=== PATIENT | male | born 1950 | race Two or more races ===

== ENCOUNTER 2016-10-21 10:37 | Emergency (ER) | payer OTHER, BC ==
[2016-10-21 11:38] VITALS: BP 118/82; PULSE 106; TEMP 98.5; BMI 17.6
[2016-10-21] MEDS ORDERED: ALBUTEROL SO4 2.5/IPRATROPIUM 0.5 INH SOL 3 ML VIAL.NEB. NEB ONE ×2 (12:29→12:35)
--- NOTE | 2016-10-21 12:35 | PDOC ---
History of Present Illness - General Chief Complaint: Cold Symptoms Stated Complaint: SOB Time Seen by Provider: 10/21/16 12:15 History Source: Patient Exam Limitations: No Limitations - History of Present Illness Initial Comments: 10/21/16 12:30 66 yr male with history of COPD, HTN, high cholesterol c/o cough nasal congestion, body aches for 2 days. Pt states his great grandson was sick last week. Denies chest pain no swelling to the legs. 10/21/16 12:35 Severity: reports: mild Possible Cause: Yes: occasional episodes Past History - Past Medical History Allergies/Adverse Reactions: Allergies Allergy/AdvReac Type Severity Reaction Status Date / Time No Known Drug Allergies Allergy Verified 10/21/16 11:24 Home Medications: Ambulatory Orders Albuterol 0.083% Nebulizer Karime [Ventolin 0.083%] 1 neb NEB Q4H PRN 06/02/16 Alfuzosin HCl [Uroxatral] 10 mg PO DAILY 06/02/16 Amlodipine Besylate [Norvasc -] 5 mg PO DAILY 06/02/16 Aspirin [Aspirin EC] 81 mg PO DAILY 06/02/16 Atorvastatin Ca [Lipitor] 10 mg PO DAILY 06/02/16 Budesonide/Formeterol Fumarate [SYMBICORT 80/4.5mcg -] 2 inh NEB BID 06/02/16 Losartan-Hctz 50-12.5 mg Tab 1 tab PO DAILY 06/02/16 Montelukast Na [Singulair -] 10 mg PO DAILY 06/02/16 Omeprazole [Prilosec] 20 mg PO DAILY 06/02/16 Roflumilast [Daliresp] 500 mcg PO DAILY 06/02/16 Tiotropium [place] [Spiriva] 18 mcg NEB DAILY 06/02/16 Azithromycin [Zithromax 250mg Tablets -] 250 mg PO UTDICT #6 tab 10/21/16 Asthma: Yes HTN: Yes Liver Disease: Yes - Surgical History Abdominal Surgery: Yes (HERNIA) - Psycho/Social/Smoking Cessation Hx Suicidal Ideation: No Smoking History: Former smoker Have you smoked in the past 12 months: Yes Number of Cigarettes Smoked Daily: 20 Information on smoking cessation initiated: No 'Breaking Loose' booklet given: 06/02/16 Hx Alcohol Use: Yes Drug/Substance Use Hx: No Substance Use Type: Alcohol Hx Substance Use Treatment: No Respiratory Specific PMHX - Complaint Specific PMHX Bronchitis: Yes Review of Systems - Review of Systems Able to Perform ROS?: Yes Is the patient limited Welsh proficient: No Constitutional: Yes: Symptoms Reported, See HPI Respiratory: Yes: See HPI, Cough *Physical Exam - Vital Signs Last Vital Signs Temp Pulse Resp BP Pulse Ox 98.5 F 106 H 20 118/82 96 10/21/16 11:33 10/21/16 11:33 10/21/16 11:33 10/21/16 11:33 10/21/16 11:33 - Physical Exam General Appearance: Yes: Nourished, Appropriately Dressed, Cachetic (mildly tachypneic) HEENT: positive: EOMI, GURWINDER, Normal ENT Inspection, TMs Normal, Pharynx Normal, Nasal Congestion Neck: positive: Supple. negative: Tender Respiratory/Chest: positive: Lungs Clear, Decreased Breath Sounds. negative: Chest Tender, Respiratory Distress, Crackles, Rales, Rhonchi, Stridor, Wheezing Gastrointestinal/Abdominal: positive: Normal Bowel Sounds, Soft Musculoskeletal: positive: Normal Inspection Extremity: positive: Normal Capillary Refill, Normal Inspection, Normal Range of Motion Integumentary: positive: Normal Color, Dry, Warm Neurologic: positive: Fully Oriented, Alert, Normal Mood/Affect, Normal Response , Motor Strength 5/5 Heart Score/ECG Review - History History: Slightly suspicious - Electrocardiogram EKG: Normal - Age Age: 45-65 - Risk Factors Risk Factors Heart Score: Yes Hx Hypercholesterolemia, Yes Hx Hypertension, Yes Smoking History - Troponin Troponin: </= normal limit - ECG Impressions Normal ECG: Yes Non-specific ST Elevation: No Ischemic Changes: No ED Treatment Course - LABORATORY CBC & Chemistry Diagram: 10/21/16 13:30 10/21/16 13:30 - RADIOLOGY Radiology Studies Ordered: Category Date Time Status CHEST PA & LAT [RAD] Stat Radiology 10/21/16 12:28 Ordered Medical Decision Making - Medical Decision Making 10/21/16 12:45 cc: cough for 3 days with body aches, feels sob has COPD using inhalers and nebs at home with some relief no chest pain no measurable fever, around sick great grandson last week will check for FLU, CXR , duoneb 10/21/16 13:17 negative flu CXR negative will check EKG, labs 10/21/16 13:40 10/21/16 14:29 EKG done signed by Dr. Aguilar non specific t wave abnormality laterally, no st elevations, negative troponin 10/21/16 14:30 10/21/16 14:30 10/21/16 15:28 *DC/Admit/Observation/Transfer Diagnosis at time of Disposition: Acute bronchitis Qualifiers: Bronchitis organism: unspecified organism Qualified Code(s): J20.9 - Acute bronchitis, unspecified - Discharge Dispostion Disposition: HOME Condition at time of disposition: Good - Prescriptions Prescriptions: Azithromycin [Zithromax 250mg Tablets -] 250 mg PO UTDICT #6 tab - Referrals Referrals: David Pearson MD [Primary Care Provider] - - Patient Instructions Additional Instructions: follow with your doctor tomorrow or Wednesday for follow up take the medication as prescribed drink pleanty of water return if worse
[2016-10-21 13:35] LABS: BASOPHIL 0.6 % (0-2.0); EOSINOPHIL 0.1 % (0-4.5); MCH 29.4 pg (25.7-33.7); MEAN CELL VOLUME 89.2 fl (80-96); MEAN PLT VOLUME 7.3 fl (7.5-11.1); NEUTROPHILS 66.5 % (42.8-82.8); PLATELET COUNT 205 K/MM3 (134-434); RDW 14.6 % (11.9-15.9); WHITE BLOOD COUNT 5.2 K/mm3 (4.0-10.0)
[2016-10-21 14:04] LABS: ALBUMIN 3.3 g/dl (3.4-5.0); ANION GAP 10 (8-16); BILIRUBIN,TOTAL 0.3 mg/dL (0.2-1.0); CALCIUM 8.7 mg/dL (8.5-10.1); CO2 28 mmol/L (21-32); CREATININE 1.2 mg/dL (0.7-1.3); GLUCOSE,RANDOM 214 mg/dL (74-106); SGOT/AST 16 U/L (15-37); SGPT/ALT 23 U/L (12-78); TOT PROT 7.1 g/dl (6.4-8.2)
[2016-10-21 14:07] LABS: ALK PHOS 95 U/L (45-117); TROPONIN I < 0.02 ng/ml (0.00-0.05)
--- NOTE | 2016-10-21 23:00 | EKG ---
Test Reason : Blood Pressure : / mmHG Vent. Rate : 094 BPM Atrial Rate : 094 BPM P-R Int : 174 ms QRS Dur : 078 ms QT Int : 366 ms P-R-T Axes : 081 071 078 degrees QTc Int : 457 ms NORMAL SINUS RHYTHM NONSPECIFIC T WAVE ABNORMALITY ABNORMAL ECG NO PREVIOUS ECGS AVAILABLE Confirmed by SUNITHA MONSIVAIS, JUDITH ([id number]) on 10/21/2016 11:00:04 PM Referred By: DHIRAJ Confirmed By:JUDITH HELTON MD
== END 2016-10-21 15:34 | disposition home or self-care (01) ==
LOC: JERFT 10:37
PROC: 3E0F7GC Introduction of Other Therapeutic Substance into Respiratory Tract, Via Natural or Artificial Opening (ICD-10-PCS; principal; 2016-10-21)
DX: J20.9 Acute bronchitis, unspecified (principal); J44.9 Chronic obstructive pulmonary disease, unspecified; I10 Essential (primary) hypertension; E78.00 Pure hypercholesterolemia, unspecified; D64.9 Anemia, unspecified; Z87.891 Personal history of nicotine dependence; Z79.82 Long term (current) use of aspirin
CPT/HCPCS: 36415; 71020-TC; 80053; 82550; 84484; 85025; 85379; 87804; 93005; 93010; 94640; 99281-25

== ENCOUNTER 2017-09-07 13:45 | Emergency (ER) | payer BC, MEDICARE, OTHER ==
[2017-09-07 13:53] VITALS: TEMP 98.3; BMI 17.6
--- NOTE | 2017-09-07 15:48 | PDOC ---
History of Present Illness - General History Source: Patient Exam Limitations: No Limitations - History of Present Illness Initial Comments: 09/07/17 16:18 The patient is a 67 year old male with a significant PMH of COPD, HTN, liver disease, and HLD who presents to the emergency department complaining of wheezing, shortness of breath, non-productive cough, and unexplained weight loss. The patient's states the patient was experiencing difficulty breathing and used his nebulizer yesterday about 4-5 times with no improvement prompting their visit to the ER today.The patient's states the patient ate soup yesterday and that was his last meal. The patient's reports the patient has been eating and drinking normally but has lost a significant amount of weight. The patient denies chest pain, headache and dizziness. Denies fever , chills, nausea, vomit, diarrhea and constipation. Denies dysuria, frequency, urgency and hematuria. Allergies: NKA Past surgical history: Abdominal surgery for hernia Social history: Alcohol and cigarette (20 per day) use. No reported drug use. PCP:Dr. Maguire <Alena Zaidi - Last Filed: 09/07/17 16:18> <Liz Barbosa - Last Filed: 09/08/17 16:18> - General Chief Complaint: Shortness of Breath Stated Complaint: DIFFICULTY BREATHING Time Seen by Provider: 09/07/17 15:40 Past History <Alena Zaidi - Last Filed: 09/07/17 16:18> - Past Medical History Asthma: Yes COPD: Yes (emphysema) DVT: No HTN: Yes Hypercholesterolemia: Yes Liver Disease: Yes Other medical history: chronic back problems - Surgical History Abdominal Surgery: Yes (HERNIA) - Suicide/Smoking/Psychosocial Hx Smoking History: Current every day smoker Have you smoked in the past 12 months: Yes Number of Cigarettes Smoked Daily: 20 Information on smoking cessation initiated: Yes 'Breaking Loose' booklet given: 09/07/17 Hx Alcohol Use: No Drug/Substance Use Hx: No Substance Use Type: Alcohol Hx Substance Use Treatment: No <Liz Barbosa - Last Filed: 09/08/17 16:18> - Past Medical History Allergies/Adverse Reactions: Allergies Allergy/AdvReac Type Severity Reaction Status Date / Time No Known Drug Allergies Allergy Verified 09/07/17 13:49 Home Medications: Ambulatory Orders Albuterol 0.083% Nebulizer Karime [Ventolin 0.083%] 1 neb NEB Q4H PRN 09/07/17 Albuterol Sulfate [Proair Hfa] 1 - 2 puff IH Q4H PRN 09/07/17 Amlodipine Besylate [Norvasc -] 5 mg PO DAILY 09/07/17 Aspirin [ASA -] 81 mg PO DAILY 09/07/17 Atorvastatin Ca [Lipitor] 10 mg PO HS 09/07/17 Azithromycin [Zithromax 250mg Tablets -] 250 mg PO UTDICT #6 tab 09/07/17 Baclofen [Lioresal -] 10 mg PO HS 09/07/17 Budesonide/Formeterol Fumarate [SYMBICORT 160/4.5mcg -] 1 inh PO BID 09/07/17 Colchicine [Colcrys -] 0.6 mg PO DAILY 09/07/17 Losartan/Hydrochlorothiazide [Losartan-Hctz 50-12.5 mg Tab] 1 each PO DAILY Meloxicam [Mobic (Nf) -] 15 mg PO DAILY 09/07/17 Omeprazole Magnesium [Prilosec Otc] 20 mg PO DAILY 09/07/17 Prednisone [Deltasone -] 40 mg PO DAILY #8 tablet 09/07/17 Roflumilast [Daliresp -] 500 mcg PO DAILY 09/07/17 Tiotropium [place] [Spiriva] 18 mcg IH DAILY 09/07/17 Tramadol HCl [Ultram] 50 mg PO Q8H PRN 09/07/17 Review of Systems - Review of Systems Able to Perform ROS?: Yes Comments:: 09/07/17 16:18 GENERAL/CONSTITUTIONAL: (+) Unexplained weight loss. No fever or chills. HEAD, EYES, EARS, NOSE AND THROAT: No change in vision. No ear pain or discharge. No sore throat. CARDIOVASCULAR: (+) Shortness of breath. No chest pain. RESPIRATORY: (+) Cough (+) Wheezing. No hemoptysis. GASTROINTESTINAL: No nausea, vomiting, diarrhea or constipation. GENITOURINARY: No dysuria, frequency, or change in urination. MUSCULOSKELETAL: No joint or muscle swelling or pain. No neck or back pain. SKIN: No rash NEUROLOGIC: No headache, vertigo, loss of consciousness, or change in strength/ sensation. ENDOCRINE: No increased thirst. No abnormal weight change. HEMATOLOGIC/LYMPHATIC: No anemia, easy bleeding, or history of blood clots. ALLERGIC/IMMUNOLOGIC: No hives or skin allergy. <Dyan,Daisy - Last Filed: 09/07/17 16:18> *Physical Exam - Vital Signs Last Vital Signs Temp Pulse Resp BP Pulse Ox 98.3 F 110 H 22 130/79 95 09/07/17 13:49 09/07/17 13:49 09/07/17 13:49 09/07/17 13:49 09/07/17 15:37 <Alena Zaidi - Last Filed: 09/07/17 16:18> - Vital Signs Last Vital Signs Temp Pulse Resp BP Pulse Ox 98.3 F 110 H 22 130/79 95 09/07/17 13:49 09/07/17 13:49 09/07/17 13:49 09/07/17 13:49 09/07/17 15:37 - Physical Exam Comments: GENERAL: Awake, alert, and fully oriented, in no acute distress. Appears cachectic, chronically ill. HEAD: No signs of trauma EYES: PERRLA, EOMI, sclera anicteric, conjunctiva clear ENT: Auricles normal inspection, hearing grossly normal, nares patent, oropharynx clear without exudates. Moist mucosa NECK: Normal ROM, supple, no lymphadenopathy, JVD, or masses LUNGS: Dec air entry B/L. Diffuse exp wheezes. HEART: Regular rate and rhythm, normal S1 and S2, no murmurs, rubs or gallops ABDOMEN: Soft, nontender, normoactive bowel sounds. No guarding, no rebound. No masses EXTREMITIES: Normal range of motion, no edema. No clubbing or cyanosis. No cords, erythema, or tenderness NEUROLOGICAL: Cranial nerves II through XII grossly intact. Normal speech, normal gait SKIN: Warm, Dry, normal turgor, no rashes or lesions noted. <Liz Barbosa - Last Filed: 09/08/17 16:18> ED Treatment Course - LABORATORY CBC & Chemistry Diagram: 09/07/17 16:35 09/07/17 16:45 <Liz Barbosa - Last Filed: 09/08/17 16:18> Medical Decision Making - Medical Decision Making 09/07/17 17:53 On initial assessment patient appeared very ill, however, he improved significantly, able to breathe clearly after treatments and steroids. Will DC with steroids and antibiotics. Stable for DC home. <Liz Barbosa - Last Filed: 09/08/17 16:18> *DC/Admit/Observation/Transfer <Alena Zaidi - Last Filed: 09/07/17 16:18> - Discharge Dispostion Admit: No <Liz Barbosa - Last Filed: 09/08/17 16:18> Diagnosis at time of Disposition: COPD exacerbation Acute bronchitis Qualifiers: Bronchitis organism: unspecified organism Qualified Code(s): J20.9 - Acute bronchitis, unspecified - Discharge Dispostion Disposition: HOME Condition at time of disposition: Improved - Prescriptions Prescriptions: Azithromycin [Zithromax 250mg Tablets -] 250 mg PO UTDICT #6 tab Prednisone [Deltasone -] 40 mg PO DAILY #8 tablet - Patient Instructions Printed Discharge Instructions: DI for Asthma -- Adult
[2017-09-07] MEDS ORDERED: SODIUM CHLORIDE 1,000 ML IV STA (15:50)
[2017-09-07] MEDS ORDERED: methylPREDNISolone NA SUCC 125 MG/2 ML VIAL IVPB ONE (15:50)
[2017-09-07] MEDS ORDERED: ALBUTEROL SO4 2.5/IPRATROPIUM 0.5 INH SOL 3 ML VIAL.NEB. NEB ONE ×2 (16:26→17:03)
[2017-09-07] MEDS ORDERED: methylPREDNISolone NA SUCC 125 MG/2 ML VIAL ONE (16:27)
[2017-09-07 16:48] LABS: BASO % 0.2 % (0-2.0); EOS % 0.1 % (0-4.5); LYMPH # 0.8 (8-40); MCH 29.6 pg (25.7-33.7); MCHC 33.3 g/dl (32.0-35.9); MEAN CELL VOLUME 88.9 fl (80-96); MEAN PLT VOLUME 8.1 fl (7.5-11.1); MONO # 1.2 # (3.8-10.2); NEUT # 12.1 # (42.8-82.8); NEUT % 85.3 % (42.8-82.8); PLATELET COUNT 267 K/MM3 (134-434); RDW 13.9 % (11.9-15.9); WHITE BLOOD COUNT 14.2 K/mm3 (4.0-10.0)
[2017-09-07] MEDS: ALBUTEROL SO4 2.5/IPRATROPIUM 0.5 INH SOL 3 ML VIAL.NEB. NEB SCH ×3 (16:52→17:31)
[2017-09-07] MEDS ORDERED: AZITHROMYCIN IVPB 500 MG in DEXTROSE 5%-WATER - 250 ML IVPB ONE (17:07)
[2017-09-07 17:18] LABS: ALBUMIN 3.1 g/dl (3.4-5.0); ANION GAP 10 (8-16); CALCIUM 9.4 mg/dL (8.5-10.1); CO2 24 mmol/L (21-32); GLUCOSE,RANDOM 140 mg/dL (74-106); SGPT/ALT 31 U/L (12-78)
[2017-09-07 17:21] LABS: ALK PHOS 105 U/L (45-117); BILIRUBIN,TOTAL 0.7 mg/dL (0.2-1.0); CREATININE 1.1 mg/dL (0.7-1.3); TOT PROT 7.6 g/dl (6.4-8.2)
[2017-09-07 17:22] LABS: SGOT/AST 53 U/L (15-37)
[2017-09-07] MEDS ORDERED: AZITHROMYCIN IVPB 250 ML IVPB ONE (17:32)
[2017-09-07 17:59] VITALS: BP 117/82; PULSE 103
--- NOTE | 2017-09-08 13:27 | EKG ---
Test Reason : Blood Pressure : / mmHG Vent. Rate : 100 BPM Atrial Rate : 100 BPM P-R Int : 176 ms QRS Dur : 078 ms QT Int : 370 ms P-R-T Axes : 084 066 087 degrees QTc Int : 477 ms SINUS RHYTHM WITH PREMATURE ATRIAL COMPLEXES NONSPECIFIC T WAVE ABNORMALITY PROLONGED QT ABNORMAL ECG WHEN COMPARED WITH ECG OF 21-OCT-2016 13:35, PREMATURE ATRIAL COMPLEXES ARE NOW PRESENT Confirmed by NANY MONSIVAIS, TRINITY ([id number]) on 09/08/2017 1:26:27 PM Referred By: Confirmed By:TRINITY AYON MD
== END 2017-09-07 19:00 | disposition home or self-care (01) ==
LOC: JER 13:45
PROC: 3E0F7GC Introduction of Other Therapeutic Substance into Respiratory Tract, Via Natural or Artificial Opening (ICD-10-PCS; principal; 2017-09-07)
PROC: 3E03329 Introduction of Other Anti-infective into Peripheral Vein, Percutaneous Approach (ICD-10-PCS; 2017-09-07)
PROC: 3E0333Z Introduction of Anti-inflammatory into Peripheral Vein, Percutaneous Approach (ICD-10-PCS; 2017-09-07)
PROC: 3E0F7GC Introduction of Other Therapeutic Substance into Respiratory Tract, Via Natural or Artificial Opening (ICD-10-PCS; 2017-09-07)
DX: J44.1 Chronic obstructive pulmonary disease with (acute) exacerbation (principal); J20.9 Acute bronchitis, unspecified; I10 Essential (primary) hypertension; E78.00 Pure hypercholesterolemia, unspecified; K76.9 Liver disease, unspecified
CPT/HCPCS: 36415; 71010-TC; 80053; 85025; 87040; 87086; 93005; 93010; 99283-25

== ENCOUNTER 2019-10-12 07:11 | Day surgery (SDC) | payer OTHER ==
[2019-10-11 17:20] VITALS: BMI 16.6
[2019-10-12] MEDS ORDERED: SUCCINYLCHOLINE CHLORIDE 200 MG/10 ML SYRINGE ONE (07:17)
[2019-10-12] MEDS ORDERED: MIDAZOLAM HCL 2 MG/2 ML SINGLE DOSE VIAL ONE ×2 (07:17)
[2019-10-12] MEDS ORDERED: PROPOFOL 20 ML ONE (07:17)
[2019-10-12] MEDS ORDERED: EPHEDRINE SULFATE/0.9% NACL/PF 50 MG/10 ML SYRINGE NR ONE (07:17)
[2019-10-12] MEDS ORDERED: ONDANSETRON 4 MG/2 ML VIAL IVPUSH PRN (07:28)
[2019-10-12] MEDS ORDERED: oxyCODONE HCL 5 MG TABLET PO PRN ×3 (07:28→10:14)
[2019-10-12] MEDS ORDERED: LACTATED RINGERS SOLUTION 1,000 ML IV SCH (07:30)
[2019-10-12] MEDS ORDERED: HYDROCORTISONE SOD SUCCINATE 2 ML ONE (08:09)
[2019-10-12] MEDS ORDERED: ceFAZolin 2 GRAM PREMIX BAG IVPB ONE (08:20)
[2019-10-12] MEDS ORDERED: GENTAMICIN SO4 80 MG/2 ML VIAL IVPB ONE (08:20)
[2019-10-12] MEDS ORDERED: SODIUM CHLORIDE 0.9% P/F 10 ML VIAL IJ ONE (09:14)
[2019-10-12] MEDS ORDERED: ceFAZolin SODIUM 1 GM VIAL ONE (09:14)
[2019-10-12] MEDS ORDERED: GENTAMICIN SO4 80 MG/2 ML VIAL ONE (09:14)
--- NOTE | 2019-10-12 10:16 | OP ---
Operative Note - Note: Operative Date: 10/12/19 Pre-Operative Diagnosis: prostate cancer Operation: cryosurgery prostate Post-Operative Diagnosis: Same as Pre-op Surgeon: Gus Angulo Anesthesia: General Estimated Blood Loss (mls): 2 Drains & Tubes with Location: prieto Operative Report Dictated: Yes
[2019-10-12 12:12] VITALS: TEMP 97.4
[2019-10-12] MEDS ORDERED: ACETAMINOPHEN 1000 MG/100 ML VIAL (NON FORMULARY) IVPB ONE (12:13)
[2019-10-12 13:25] VITALS: BP 132/88; PULSE 95
--- NOTE | 2019-10-13 17:10 | OP ---
DATE OF OPERATION: DATE OF DICTATION: 10/13/2019 PREOPERATIVE DIAGNOSIS: Prostate cancer. POSTOPERATIVE DIAGNOSIS: Prostate cancer. PROCEDURE: Cryotherapy of the prostate. SURGEON: Gus Angulo MD INDICATION: Patient is a 69-year-old male with recurrent prostate cancer s/p radiation as the primary therapy. After treatment options reviewed, patient to undergo salvage cryotherapy. Risks, benefits, alternatives discussed, and the patient was consented to procedure. Informed consent was obtained. DESCRIPTION OF PROCEDURE: Patient was taken to the OR. Placed supine on the operating room table. After cardiac monitoring was administered, general anesthesia was established. He was prepped and draped in the extended lithotomy position. Sequential compression devices were placed on the lower extremities. Digital rectal exam was performed, and there was no evidence of any stool in the rectal vault. Examination of the prostate was consistent with preop examination. The perineum and the genitalia were prepped and draped in the usual standard fashion with Betadine. Antibiotics were administered intravenously, 2 g of ampicillin and 160 mg of gentamicin. A complete time-out was performed. A 16-Macanese Jarrett catheter was inserted into urethra without difficulty, and after bladder was emptied, 60 mL of normal saline was instilled and the catheter clamped. A biplanar transrectal ultrasound was performed. The prostate was well visualized. The probe was placed in the cradle and attached to the stepper unit. The prostate dimensions were 3.4 cm in width, 2.3 cm in height, and 3.1 cm in length for a total dimension of 12.9 g in volume. The [employer] software was then engaged and a planning session performed. The tmoma-oo-eiydi, wfsri-nf-vubszwj, and nluug-bv-vjssbxc measurements all were satisfactory, that is, the qrecy-rf-jfvgm distance was at least 2 cm apart, the ozpei-js-kwiljnt distance was at least 0.5 cm apart, and the zyhkt-bl-itzfghe distance was at least 1 cm apart. Given this information, cryo probes 1 and 2, which were the anterior probes, were placed into the loci as defined by the planning session. Satisfactory placement occurred. Sagittal imaging was used to determine the length of the urethra at the site of the needles, and the length was adjusted on the variable probe. Attention was then turned to placing the temperature probe. Under sonographic guidance, temperature probes were placed at the anterior of the prostate at the level of the external sphincter, at the apex of the prostate, and at [place]illiers fascia. At the completion of the placement of the thermal sensors , attention was then placed to position the additional probes, in this case, 2 other probes were used, probes 3 and 4, and they were placed in their appropriate locations determined by the planning session. Placement of all cryo probes were confirmed in transverse and sagittal planes and the length of the interprostatic portion of the probe measured and adjustments to the length of delivered ice were made. The Jarrett was withdrawn. A flexible cystoscope was then placed into urethra, and cystoscopy was performed. The urethra was unremarkable, and there was no evidence of any perforation. The prostatic urethra was carefully inspected and found to be satisfactory in appearance with no evidence of placement of any cryo probe in this region. The scope was then passed into the bladder. Bladder neck was unremarkable. The remainder of the bladder was normal with no evidence of pathology. The orifices were normal. A Super Stiff guidewire was then advanced into the bladder under cystoscopic guidance and cystoscope removed. The warming catheter was then placed over the guidewire and the wire removed. The warming catheter was then placed over the wire into the bladder and the wire removed and the warmer started. The position of all the probes was again confirmed sonographically. The 1st freeze cycle was initiated. Temperatures were carefully monitored throughout the freeze and were satisfactory. Freezing was monitored sonographically confirming the position and extent of the ice balls. A thaw cycle with helium was then performed. After complete thawing, the 2nd freeze and thaw cycles were performed. After the prostate was completely thawed, all cryo probes and temperature sensors were removed. The warming catheter was removed. A new 18-Macanese Jarrett was then inserted and attached to a leg bag. Rectal exam was performed revealing no evidence of any ice. A dry, sterile dressing consisting of bacitracin, 4 x 4, and Tegaderm was applied to the perineum. Patient was taken out of lithotomy position and transferred to recovery room stretcher and to the recovery room in satisfactory condition. There were no complications. There was minimal blood loss. Summer [id number] MTDD
== END 2019-10-12 13:39 | disposition home or self-care (01) ==
LOC: JASU-SURG 07:11
PROVIDERS: ATTEND Urology
PROC: 0V503ZZ Destruction of Prostate, Percutaneous Approach (ICD-10-PCS; principal; 2019-10-12 08:00)
DX: C61 Malignant neoplasm of prostate (principal)
CPT/HCPCS: 55873; C2618; 94760; J0131